=== PATIENT | female | born 1995 | race Hispanic/Latino ===

== ENCOUNTER 2017-10-27 03:40 | Emergency (ER) | payer SELFPAY ==
[2017-10-27 03:50] VITALS: BMI 18.4
--- NOTE | 2017-10-27 04:20 | ED PDOC ---
Arrival/HPI - General Historian: Patient - History of Present Illness Time/Duration: < week Symptom Onset: Gradual Symptom Course: Worsening Quality: Aching, Cramping, Fullness Severity Level: 9 <Rangel North - Last Filed: 10/27/17 06:48> <Roger Marie - Last Filed: 10/27/17 07:10> - General Chief Complaint: Female Genitourinary - History of Present Illness Narrative History of Present Illness (Text): 10/27/17 04:16 22 yo F with no PMH presents complaining of lower abdominal cramping for the past three days. Patient reports that her normal, expected period started 3 days ago, with associated onset of severe cramping pelvic pain/heaviness. She has never had this cramping before. Pain is intermittent in nature, not well controlled with OTC NSAIDs - she has tried 400mg ibuprofen q6h. Pain has been getting progressively worse since it began. Patient is sexually active with one male partner, uses condoms for contraception. Patient recently stopped taking oral contraceptives, about one month ago. (Rangel North) Past Medical History - Provider Review Nursing Documentation Reviewed: Yes - Travel History Have you recently traveled outside [place] w/in the past 3 mons?: No - Past History Past History: No Previous - Infectious Disease Hx of Infectious Diseases: None - Tetanus Immunization Tetanus Immunization: Unknown - Reproductive Currently : Unknown - Past Medical History Past Medical History: No Previous - Psychiatric Hx Psychophysiologic Disorder: No Hx Substance Use: No - Anesthesia Hx Anesthesia: No <Rangel North - Last Filed: 10/27/17 06:48> Family/Social History - Physician Review Nursing Documentation Reviewed: Yes Family/Social History: Unknown Family HX Smoking Status: Current Some Days Smoker Hx Alcohol Use: No Hx Substance Use: No <Rangel North - Last Filed: 10/27/17 06:48> Allergies/Home Meds <Rangel North - Last Filed: 10/27/17 06:48> <Roger Marie - Last Filed: 10/27/17 07:10> Allergies/Adverse Reactions: Allergies No Known Allergies Allergy (Verified 10/27/17 03:51) Review of Systems - Review of Systems Constitutional: Normal Eyes: Normal ENT: Normal Respiratory: Normal Cardiovascular: Normal Gastrointestinal: Abdominal Pain, Constipation Genitourinary Female: Vaginal Bleeding Musculoskeletal: Normal Skin: Normal Neurological: Normal Endocrine: Normal Hemo/Lymphatic: Normal Psychiatric: Normal <Rangel North - Last Filed: 10/27/17 06:48> Physical Exam Vital Signs Reviewed: Yes Temperature: Afebrile Blood Pressure: Normal Pulse: Regular Respiratory Rate: Normal Appearance: Positive for: Well-Appearing, Non-Toxic, Uncomfortable Pain Distress: Mild Mental Status: Positive for: Alert and Oriented X 3 - Systems Exam Head: Present: Atraumatic, Normocephalic Pupils: Present: PERRL Extroacular Muscles: Present: EOMI Conjunctiva: Present: Normal Mouth: Present: Moist Mucous Membranes Neck: Present: Normal Range of Motion Respiratory/Chest: Present: Clear to Auscultation. No: Accessory Muscle Use Cardiovascular: Present: Regular Rate and Rhythm, Normal S1, S2 Abdomen: Present: Tenderness (suprapubic). No: Distention Upper Extremity: Present: Normal Inspection. No: Cyanosis, Edema Lower Extremity: Present: Normal Inspection. No: Edema, CALF TENDERNESS Neurological: Present: GCS=15, CN II-XII Intact, Speech Normal Skin: Present: Warm, Dry, Normal Color Psychiatric: Present: Alert, Oriented x 3, Normal Insight, Normal Concentration <Rangel North - Last Filed: 10/27/17 06:48> Vital Signs Temp Pulse Resp BP Pulse Ox 10/27/17 04:20 98.1 F 87 18 130/76 100 Medical Decision Making <Rangel North - Last Filed: 10/27/17 06:48> <Roger Marie - Last Filed: 10/27/17 07:10> ED Course and Treatment: 10/27/17 04:22 Impression: Pelvic cramps Differential Diagnosis included but are not limited to: primary vs secondary dysmenorrhea, threatened , cystitis Plan: -- Urinalysis and urine test -- Reassess and disposition Prior Visits: None Progress Notes: 10/27/17 04:47 POC test positive. Ordered CBC, type and screen, transvaginal Ultrasound. Acetaminophen for pain. 10/27/17 06:25 Pelvic exam shows dark blood pooling in the vagina, from cervical os, which is closed. Pelvic ultrasound showed intrauterine , approximately 9 weeks gestation, no detectable heart rate, likely intrauterine demise. Inevitable/Incomplete Call placed to Dr. Danika Moreno for recommendations regarding expectant management vs inpatient vs outpatient suction D&C 10/27/17 06:[address] Moreno, who recommends expectant management vs medical management with vaginal misoprostol. Patient elects to take vaginal misoprostol. First dose administered in Emergency room, with prescription for second dose in 12 hours. Patient instructed to follow up with Dr. Moreno within one week. Patient discharged to home. (Rangel North) Impression: Pt seen and evaluated with emergency medical service manager. Aware and agree with HPI, clinical findings, plan, and management. Pt, with no significant past medical history, presented for lower abdominal cramping. Pt was d/c home. Plan: -- UA -- Reassess and disposition 10/27/17 06:41 Transvaginal US shows: Gestation: Irregular gestational sac within lower uterine segment/cervix. No heartbeat detected. [place]-rump length of 2.6 cm, correlating with gestational age of 9 weeks 3 days. Uterus/cervix: See above. Ovaries: Normal ovaries. No adnexal masses. Free fluid: No significant free fluid. IMPRESSION: 1. Findings compatible with demise/ in progress. (Roger Marie) - Lab Interpretations Lab Results: 10/27/17 04:56 10/27/17 04:56 Lab Results 10/27/17 04:56: WBC 16.8 H, RBC 4.05, Hgb 12.5, Hct 36.0, MCV 88.9, MCH 30.9, MCHC 34.7, RDW 13.0, Plt Count 221, MPV 10.2 10/27/17 04:56: Beta HCG, Quant 1792.00 H 10/27/17 04:56: Sodium 139, Potassium 3.3 L, Chloride 104, Carbon Dioxide 23, Anion Gap 16, BUN 9, Creatinine 0.4 L, Est GFR ( Amer) > 60, Est GFR (Non -Af Amer) > 60, Random Glucose 92, Calcium 9.2, Total Bilirubin 0.3, AST 26, ALT 24, Alkaline Phosphatase 55, Total Protein 7.4, Albumin 4.2, Globulin 3.2, Albumin/Globulin Ratio 1.3 10/27/17 04:43: Blood Type Pending, Antibody Screen Pending, BBK History Checked No verified bt 10/27/17 04:30: Urine Color Light red, Urine Appearance Bloody, Urine pH 8.0, Ur Specific [place] 1.020, Urine Protein 100 H, Urine Glucose (UA) Negative, Urine Ketones 15 H, Urine Blood Large H, Urine Nitrate Positive H, Urine Bilirubin Negative, Urine Urobilinogen 0.2, Ur Leukocyte Esterase Small H, Urine RBC Tntc, Urine WBC 5 - 10, Ur Epithelial Cells 3 - 4, Urine Bacteria Small, Urine HCG, Qual Positive - RAD Interpretation Radiology Orders: 10/27/17 04:45 OB TRANSVAGINAL [US] Stat - Medication Orders Current Medication Orders: Discontinued Medications Acetaminophen (Tylenol 325mg Tab) 650 mg PO STAT STA Stop: 10/27/17 04:47 Last Admin: 10/27/17 05:05 Dose: 650 mg Ketorolac Tromethamine (Toradol) 30 mg IVP STAT STA Stop: 10/27/17 06:48 Last Admin: 10/27/17 06:53 Dose: 30 mg MAR Pain Assessment Document 10/27/17 06:53 IT (Rec: 10/27/17 06:53 IT [id number]) Pain Reassessment Is this a pain reassessment? No Sleep Is patient sleeping during reassessment? No Presence of Pain Presence of Pain No Pain Scale Used Pain Scale Used Numeric Location Left, Right or Bilateral Bilateral IVP Administration Document 10/27/17 06:53 IT (Rec: 10/27/17 06:53 IT [id number]) Charges for Administration # of IVP Administrations 1 Misoprostol (Cytotec) 800 mcg VAG STAT STA Stop: 10/27/17 06:48 Last Admin: 10/27/17 07:02 Dose: 800 mcg - PA / MDS RN / Resident Statement / has reviewed & agrees with the documentation as recorded. /DO has examined the patient and agrees with the treatment plan. <Roger Marie - Last Filed: 10/27/17 07:10> Disposition/Present on Arrival - Present on Arrival Any Indicators Present on Arrival: No History of DVT/PE: No History of Uncontrolled Diabetes: No Urinary Catheter: No History of Decub. 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
[2017-10-27 04:22] VITALS: O2SAT 100
[2017-10-27 04:44] LABS: URINE BILIRUBIN NEGATIVE (NEGATIVE); URINE BLOOD LARGE (NEGATIVE); URINE GLUCOSE (UA) NEGATIVE (NEGATIVE); URINE LEUKOCYTE ESTERASE SMALL Leu/uL (NEGATIVE); URINE PROTEIN 100 mg/dL (<30 mg/dL); URINE UROBILINOGEN 0.2 E.U./dL (<1 E.U./dL)
[2017-10-27 04:47] LABS: URINE APPEARANCE BLOODY (CLEAR); URINE COLOR LIGHT RED (YELLOW)
[2017-10-27 04:54] LABS: URINE BACTERIA SMALL (NEG); URINE RBC TNTC /hpf (0-2)
[2017-10-27 04:55] LABS: HCG,QUALITATIVE URINE POSITIVE (NEGATIVE)
[2017-10-27 05:21] LABS: HEMOGLOBIN 12.5 g/dL (12.0-16.0); MEAN CELL VOLUME 88.9 fl (80.0-105.0); MEAN CORPUSCULAR HEMOGLOBIN 30.9 pg (25.0-35.0); MEAN CORPUSCULAR HGB CONC 34.7 g/dl (31.0-37.0); MEAN PLATELET VOLUME 10.2 fl (7.0-11.0); RBC 4.05 10^6/uL (3.5-6.1); WHITE BLOOD COUNT 16.8 10^3/ul (4.5-11.0)
[2017-10-27 05:49] LABS: ALB/GLOB RATIO 1.3 (1.1-1.8); ALBUMIN 4.2 g/dL (3.0-4.8); ALT/SGPT 24 U/L (7-56); AST/SGOT 26 U/L (14-36); BLOOD UREA NITROGEN 9 mg/dL (7-21); CALCIUM 9.2 mg/dL (8.4-10.5); GFR AFRICAN-AMERICAN > 60; GFR NON-AFRICAN AMERICAN > 60
--- NOTE | 2017-10-27 06:31 | US ---
EXAM: US First Trimester, Transabdominal US , Transvaginal CLINICAL HISTORY: 22 years old, female; Signs and symptoms; Lmp or gestational age (in weeks): 08/22/2017; Other: Bleeding/cramping; TECHNIQUE: Real-time transabdominal and transvaginal obstetrical ultrasound of the maternal pelvis and a first trimester with image documentation. Transvaginal imaging was used for better evaluation of the fetus and adnexa. COMPARISON: No relevant prior studies available. FINDINGS: Gestation: Irregular gestational sac within lower uterine segment/cervix. No heartbeat detected. [place]-rump length of 2.6 cm, correlating with gestational age of 9 weeks 3 days. Uterus/cervix: See above. Ovaries: Normal ovaries. No adnexal masses. Free fluid: No significant free fluid. IMPRESSION: 1. Findings compatible with demise/ in progress.
[2017-10-27 07:15] VITALS: BP 122/71; PULSE 82; RESP 17; TEMP 98.2
== END 2017-10-27 07:40 | disposition home or self-care (01) ==
LOC: ED 03:40
DX: O03.9 Complete or unspecified spontaneous abortion without complication (principal); O02.1 Missed abortion; Z3A.09 9 weeks gestation of pregnancy
CPT/HCPCS: 76817; 80053; 81001; 84702; 84703; 85027; 86850; 86900; 87086; 96374; 99283; J1885